=== PATIENT | female | born 1960 | race Caucasian/White ===

== ENCOUNTER 2020-07-10 23:04 | Emergency (ER) | payer OTHER ==
[~2020-07-10] VITALS: Ht 162.6 cm; Wt 47.6 kg
[2020-07-10 23:04] VITALS: BP_SYST 120
--- NOTE | 2020-07-10 23:10 | NUR ---
Placed in room 3 . Placed on glaucoma specialist, blood pressure machine and pulse oximeter. To gown for exam. Side rails up.
--- NOTE | 2020-07-10 23:13 | NUR ---
Pt BIB ALS from home c/o SOB x several days, worse today. Pt reports not being able to catch her breath and becoming anxious. -accessory muscle use, +expiratory wheezes throughout. Pt on breathing treatment from EMS with some improvement.
[2020-07-10] MEDS ORDERED: ALBMDI INH (23:16)
[2020-07-10] MEDS ORDERED: FLUT1DIS3 IH (23:17)
[2020-07-10] MEDS: NACL 0.9% 1,000 ML IV ONE (23:20)
[2020-07-10] MEDS: methylPREDNISolone SOD SUCC/PF 62.5 MG/ML VIAL IVP ONE (23:22)
[2020-07-10] MEDS: LevALBUTEROL HCL 1.25 MG/0.5 ML *CONC.* VIAL.NEB (XOPENEX CONC.) INH ONE (23:28)
[2020-07-10] MEDS: IPRATROPIUM BROM 0.5 MG/2.5 ML VIAL.NEB (ATROVENT) INH ONE (23:28)
--- NOTE | 2020-07-11 | NUR ---
Dr. Munoz at bedside
--- NOTE | 2020-07-11 00:11 | NUR ---
Pt reports feeling better after medications. Lung sounds clear throughout.
--- NOTE | 2020-07-11 00:15 | NUR ---
Called pt's Alex for picker packer. Left message with call back info.
--- NOTE | 2020-07-11 00:18 | NUR ---
RT at bedside for MSE
[2020-07-11] MEDS ORDERED: ALBU8.5H8 INH (00:40)
[2020-07-11] MEDS ORDERED: PRED20TA PO (00:40)
[2020-07-11 00:50] VITALS: BP_SYST 98
--- NOTE | 2020-07-11 00:50 | NUR ---
Patient given written and verbal discharge instructions and verbalizes understanding. ER MD discussed with patient the results and treatment provided. Patient in stable condition. ID arm band removed. IV catheter removed intact and dressing applied, no active bleeding. Rx of PREDNISONE, ALBUTEROL given. Patient educated on pain management and to follow up with PMD. Opportunity for questions provided and answered. Medication side effect fact sheet provided.
== END 2020-07-11 00:50 | disposition home or self-care (01) ==
LOC: SED 23:04
DX: R06.02 Shortness of breath (principal); J45.909 Unspecified asthma, uncomplicated; F17.200 Nicotine dependence, unspecified, uncomplicated
CPT/HCPCS: 94640; 96361; 96374; 99283; J2930; J7030; J7612